=== PATIENT | female | born 1995 | race Caucasian/White ===

== ENCOUNTER 2017-01-14 05:48 | Day surgery (SDC) | payer OTHER ==
[2017-01-14] VITALS (13 sets, daily range): BP systolic 104–158; BP diastolic 63–80; PULSE 77–114; RESP 11–22; Ht 162.6 cm; Wt 77.0 kg
[~2017-01-14] VITALS: Ht 162.6 cm; Wt 77.0 kg
--- NOTE | 2017-01-14 07:48 | HPN ---
Date/Time of Note Date/Time of Note DATE: 01/14/17 TIME: 07:48 Interval H&P Admission Note Pt. seen H&P reviewed: No system changes ROGELIO SERRANO MD Jan 14, 2017 07:48
[2017-01-14] MEDS ORDERED: ALBUMIN HUMAN 5% 250 ML IV PRN (08:30)
[2017-01-14] MEDS ORDERED: DIPHENHYDRAMINE 50 MG INJ IV PRN (08:30)
[2017-01-14] MEDS ORDERED: LABETALOL HCL 20MG INJ IV PRN (08:30)
[2017-01-14] MEDS ORDERED: MEPERIDINE 25 MG INJ IV PRN (08:30)
[2017-01-14] MEDS ORDERED: FENTAnyl 50 MCG/ML VIAL IV PRN ×3 (08:30)
[2017-01-14] MEDS ORDERED: morphine (1 MG/ML) 10ML SYRINGE IV PRN ×3 (08:30)
[2017-01-14] MEDS ORDERED: ONDANSETRON 4 MG INJ IV PRN (08:30)
[2017-01-14] MEDS ORDERED: OXYCODONE/ACETAMINOPHEN (5/325) TAB PO PRN ×2 (08:30)
[2017-01-14] MEDS ORDERED: EPHEDrine SULFATE 50 MG/5 ML SYG IV PRN (08:30)
--- NOTE | 2017-01-14 09:55 | PD.PPDC ---
RECREATION PROGRAM SPECIALIST Discharge Instruction Diagnosis Final Diagnosis: labial hypertrophy Condition Patient Condition: Stable Activity/Restrictions Activity: May Shower Restrictions: No Sexual Activity Nothing in the Vagina No [place] No Tampons, douche Follow-up Follow-up with Physician: 2, Week/Weeks Return to clinic for [facility] Instructions: Fever greater than 101 Chills Worsening abdominal pain Excessive Vaginal Bleeding More than 2 pads per hour Unable to tolerate diet Surgical Instructions: Incisional Drainage Incisional Redness ROGELIO SERRANO MD Jan 14, 2017 09:55
--- NOTE | 2017-01-14 09:58 | SIPON ---
Date/Time of Note Date/Time of Note DATE: 01/14/17 TIME: 09:57 Operative Report Preoperative Diagnosis labial hypertrophy Postoperative Diagnosis same Operation/Procedure Performed bilateral labial ressection Surgeon: ROGELIO SERRANO MD Anesthesia Type: general Estimated Blood Loss: 10 - 50 ml's Specimens portion of bilateral labia minora Grafts/Implants: none Grafts/Implants none Complications: no ROGELIO SERRANO MD Jan 14, 2017 09:58
--- NOTE | 2017-01-16 10:53 | OPR ---
DATE OF OPERATION: 01/14/2017 PREOPERATIVE DIAGNOSIS: Bilateral labial hypertrophy, status post a labial resection. POSTOPERATIVE DIAGNOSIS: Bilateral labial hypertrophy, status post a labial resection. OPERATION PERFORMED: Bilateral labia resection. ANESTHESIA: General. ANESTHESIOLOGIST: See report to the chart. SURGEON: Jose De Jesus Camarena MD. ESTIMATED BLOOD LOSS: Less than 20 cc. OPERATION PERFORMED: Under appropriate induction of general anesthesia, patient was placed on dorsal lithotomy position. Perineal area and vagina were prepped and draped in usual aseptic manner. On inspection, external genitalia revealed there is a redundant labia minora, especially on the left side and even near the perineum and also on the right side, upper labia minor was redundant. The left labia minora was grasped with the Allis along the edge of the labia minora and the designated incision was drawn with a marking pencil and the suture using 2-0 chromic catgut on a SH needle in continuous manner, thus reducing the blood loss for hemostatic purposes. Then excessive labia minora was excised and the defect was closed with a 2-0 chromic catgut in continuous manner. On the right side of the labia upper part also was done in the same manner, redundant mucosa was excised. Defect was closed with a 2-0 chromic catgut in continuous manner. No bleeding was noted and the procedure was completed. Xeroform gauze was placed and a Evelin-Pad was placed. Estimated blood loss less than 20 cc. The patient withstood the procedure well, sent to recovery room in stable condition. Dictated By: Janice Camarena MD /[email or web address] /Document#: [id number]
== END 2017-01-14 11:19 | disposition home or self-care (01) ==
LOC: MERGE 05:48 → SDS 05:48 → UNMERGE 05:48 → SDS 11:19
PROVIDERS: ATTEND Obstetrics & Gynecology
DX: N90.60 Unspecified hypertrophy of vulva (principal)
CPT/HCPCS: 11426; 88305; J2270; J3010; Z7512; Z7610